=== PATIENT | female | born 1980 | race American Indian/Alaskan Native ===

== ENCOUNTER 2018-02-01 16:24 | Inpatient (IN) | payer MEDICAID, OTHER ==
[2018-02-01 16:31] VITALS: O2SAT 100
--- NOTE | 2018-02-01 16:31 | ED PDOC ---
Psych Transfer Clearance - Clearance Statement Clearance Statement: Reviewed vital signs, lab results and transfer papers. Patient clinically stable for psychiatric admission.
[2018-02-01] MEDS ORDERED: Magnesium Hydroxide Susp 30 ml UD PO PRN (18:52)
[2018-02-01] MEDS ORDERED: DiphenhydrAMINE 50 mg/ml Inj IM PRN (18:52)
--- NOTE | 2018-02-01 19:00 | PCM.BM ---
<Rashmi Goldsmith - Last Filed: 02/01/18 18:59> Treatment Plan Problems - Problems identified on initial assessmt medication nonadherence Date Initiated: 02/01/18 Time Initiated: 18:59 Assessment reference: NA Status: Active Hopelessness/Helplessness Date Initiated: 02/01/18 Time Initiated: 18:59 Assessment reference: NA Status: Active Altered Sleep Patterns Date Initiated: 02/01/18 Time Initiated: 18:59 Assessment reference: NA Status: Active Treatment assets and liabiliti Patient Assests: adapts well, cooperative, motivated, ADL independent, good support system, negotiates basic needs Patient Liabilities: financial problems, poor support system, substance abuse, legal issue - Milieu Protocol Maintain good personal hygiene: daily Encourage regular showers, daily Remind patient to perform daily oral care, daily Assist patient to perform ADL's Maintain personal safety: daily Educate patient to report safety concerns to staff, daily Monitor environment for contraband/sharps, every shift Educate patient to report safety concerns to staff, every shift Monitor environment for contraband/sharps Medication safety: Monitor for expected outcome, potential side effects: daily, every shift, Assess barriers to learning: daily, every shift, Assess readiness for medication education: daily, every shift <Lan Madden - Last Filed: 02/04/18 13:56> Treatment Plan Problems - Problems identified on initial assessmt medication nonadherence Date Initiated: 02/01/18 Time Initiated: 18:59 Assessment reference: NA Status: Active Hopelessness/Helplessness Date Initiated: 02/01/18 Time Initiated: 18:59 Assessment reference: NA Status: Active Altered Sleep Patterns Date Initiated: 02/01/18 Time Initiated: 18:59 Assessment reference: NA Status: Active Denial Date Initiated: 02/04/18 Time Initiated: 11:14 Assessment reference: NA Status: Active Family Contact Family involvement: Famliy/SO not involved Family contact: Patient declines to allow family contact at present Family contact name: Pt denied. - Goals for Treatment Patient goals for treatment: Pt refused to attend treatment team due to withdrawl symptoms. Goals unable to be obtained. Discharge/Continuing Care - Education Needs Education Needs: Patient Medication, Patient Diagnosis/Disease Process, Patient Coping Skills, Patient Placement options, Patient Community resources, Patient Aftercare Safety Plan - Discharge Discharge Criteria: Tolerates medication w/o severe side effects, Free of Suicidal thoughts, Normal sleep pattern, No longer exhibiting s/s of withdrawal , Reduction of target symptoms Discharge to:: Long-Term - Treatment Team Participation Patient/Family/SO Statement: 02/04/18 13:57 Pt refused to attend treatment team due to withdrawal symptoms. Discussed with Family/SO: No Was Patient/Family/SO present at Treatment Team Meeting: No <Nicol Garcia - Last Filed: 02/04/18 14:34> - Diagnosis (1) Opioid use disorder, severe, dependence Status: Acute Interventions: motivational therapy 02/04/18 14:34
--- NOTE | 2018-02-02 13:16 | PCM.PSYCH ---
Initial Psychiatric Evaluation - Initial Psychiatric Evaluation Type of Admission: Voluntary Legal Status: Capacity Chief Complaint (in patient's own words): I am very depressed Patient's Reaction to Hospitalization: pt requested help History of Present Illness and Precipitating Events: pt is 37 ys old female with previous psychiatric diagnosis of poly substance use and depression, pt presented to ER in [facility] reporting suicidal ideation with plan to overdose, relates her depression to loosing custody of her six children to her mother, being unempolyed, homeless and having financial difficulties , pt recently relapsed on heroin using about 15 bags daily , also relapsed on cocaine and xanax pt on the unit presenting with depressed mood and affect, feeling hopeless and helpless, poor motivation and energy and poor sleep, continues to have passive suicidal ideation without active plan on the unit denied homicidal ideation, denied perceptual disturbances Current Medications: Active Medications Generic Name Dose Route Start Last Admin Trade Name Freq PRN Reason Stop Dose Admin Acetaminophen 650 mg 02/01/18 18:52 Tylenol 325mg Tab PO Q4 PRN Pain, moderate (4-7) Al Hydrox/Mg Hydrox/Simethicone 30 ml 02/01/18 18:52 Maalox Plus 30 Ml PO Q4 PRN Dyspepsia Clonidine HCl 0.1 mg 02/01/18 20:30 02/02/18 05:53 Catapres PO 02/04/18 20:31 Not Given Q8 VALENTIN Cyclobenzaprine HCl 5 mg 02/02/18 11:14 Flexeril PO TID PRN Muscle spasm Diphenhydramine HCl 50 mg 02/01/18 18:52 Benadryl IM Q6 PRN Extrapyramidal S/S Unable PO Diphenhydramine HCl 50 mg 02/01/18 18:52 Benadryl PO Q6 PRN Extrapyramidal Symptoms Gabapentin 200 mg 02/02/18 13:00 Neurontin PO TID VALENTIN Haloperidol 5 mg 02/01/18 18:52 Haldol PO Q4 PRN Agitation Haloperidol Lactate 5 mg 02/01/18 18:52 Haldol IM Q4 PRN Agitation, Unable to Take PO Ibuprofen 800 mg 02/01/18 19:14 Motrin Tab PO Q6 PRN Pain, severe (8-10) Loperamide HCl 2 mg 02/01/18 19:13 Imodium PO Q6 PRN diarreha Lorazepam 1 mg 02/01/18 20:21 Ativan PO Q6 PRN Agitation Lorazepam 1 mg 02/01/18 20:22 Ativan IM Q6 PRN Agitation Magnesium Hydroxide 30 ml 02/01/18 18:52 Milk Of Magnesia PO HS PRN Constipation Multivitamins/Minerals 1 tab 02/02/18 09:00 Therapeutic-M Tab PO DAILY VALENTIN Ondansetron HCl 4 mg 02/01/18 19:53 02/01/18 20:13 Zofran Tab PO 4 mg Q6 PRN Administration Nausea/Vomiting Past Psychiatric History - Past Psychiatric History Explanation of prior treatment: multiple inpatient hospitalizations hx of non compliance with treatment History of ETOH/Drug Use: cocaine, heroin, xanax and alcohol Pertinent Medical Hx (Current Medical&Sleep Prob, Allergies): Allergies Allergy/AdvReac Type Severity Reaction Status Date / Time SHRIMP Allergy RASH Uncoded 02/01/18 16:26 Mental Status Examination - Personal Presentation Personal Presentation: Looks older than stated age - Affect Affect: Constricted, Depressed - Motor Activity Motor Activity: Psychomotor Retardation - Reliability in Providing Information Reliability in Providing Information: Poor, due to altered mood - Speech Speech: Relevant - Mood Mood: Depressed, Anxious - Formal Thought Process Formal Thought Process: Circumstantial - Hallucinations/Delusions Additional comments: denied perceptual disturbances, non elicited - Obsessions/Compulsions Obsessions: No Compulsions: No - Cognitive Functions Orientation: Person, Place, Situation Sensorium: Alert Judgement: Imparied, as evidence by: Poor judgement, Imparied, as evidence by: Lack of insight into illness - Risk Risk: Suicidal, Withdrawal, Diminished functioning - Strength & Assets Inventory Strength & Assets Inventory: Employment history - Limitations Additional comments: poor compliance DSM 5 DX - DSM 5 DSM 5 Diagnosis: 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
[2018-02-02] MEDS: Multivitamin With Minerals Tab PO SCH (13:33)
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
[2018-02-03] MEDS: Multivitamin With Minerals Tab PO SCH (10:09)
--- NOTE | 2018-02-03 14:33 | PCM.PYCHPN ---
Psychiatric Progress Note - Psychiatric Progress Note Patient seen today, length of contact: pt evaluated discussed with team chart reviewed Patient Chief Complaint: I am having hard time with the withdrawals Problems Identified/Issues Discussed: pt seen in bed , presenting with depressed mood , dysphoric affect, low energy, reported poor motivation, passive suicidal ideation without plan , relates that to financial stress and withdrawal symptoms, motivational therapy provided discussed with pt effect of substance use on current mental status, ,will start wellbutrin for depresed , pt continues to report passive suicidal ideation without active plan on the unit, denied command hallucinations Medical Problems: multiple inpatient hospitalizations hx of non compliance with treatment DSM 5 Symptoms Update: substance induced mood disorder with depressive features Medication Change: Yes Medical Record Reviewed: Yes Mental Status Examination - Cognitive Function Orientation: Person, Place, Situation Attention: WNL Concentration: Poor Association: WNL Fund of Knowledge: Poor Decription of patient's judgement and insights: poor insight and judgment - Mood Mood: Depressed, Anxious - Affect Affect: Constricted, Depressed - Speech Speech: Soft - Formal Thought Process Formal Thought Process: Circumstantial Psychotic Thoughts and Behaviors: pt denied any current perceptual disturbances - Suicidal Ideation Suicidal Ideation: No - Homicidal Ideation Homicidal Ideation: No Goal/Treatment Plan - Goal/Treatment Plan Need for Continued Stay: Severe depression anxiety, Discharge may exacerbated symptoms Progress Toward Problem(s) and Goals/Treatment Plan: continue clonidine protocol and monitor for symptoms and signs of opiate withdrawal wellbutrin 75 mg daily neurontin 200mg tid for anxiety trazodone 100mg qhs for insomnia motivational group and supportive therapy Estimated Date of D/C: 02/08/18
[2018-02-03 19:06] VITALS: RESP 18
[2018-02-04] MEDS ORDERED: Trimethobenzamide 200 mg/2 mL Inj IM ONE (10:46)
--- NOTE | 2018-02-04 11:14 | PCM.BM ---
Treatment Plan Problems - Problems identified on initial assessmt medication nonadherence Date Initiated: 02/01/18 Time Initiated: 18:59 Assessment reference: NA Status: Active Hopelessness/Helplessness Date Initiated: 02/01/18 Time Initiated: 18:59 Assessment reference: NA Status: Active Altered Sleep Patterns Date Initiated: 02/01/18 Time Initiated: 18:59 Assessment reference: NA Status: Active Denial Date Initiated: 02/04/18 Time Initiated: 11:14 Assessment reference: NA Status: Active Treatment assets and liabiliti Patient Assests: adapts well, cooperative, motivated, ADL independent, good support system, negotiates basic needs Patient Liabilities: financial problems, poor support system, substance abuse, legal issue - Milieu Protocol Maintain good personal hygiene: daily Encourage regular showers, daily Remind patient to perform daily oral care, daily Assist patient to perform ADL's Maintain personal safety: daily Educate patient to report safety concerns to staff, daily Monitor environment for contraband/sharps, every shift Educate patient to report safety concerns to staff, every shift Monitor environment for contraband/sharps Medication safety: Monitor for expected outcome, potential side effects: daily, every shift, Assess barriers to learning: daily, every shift, Assess readiness for medication education: daily, every shift Milieu Narrative: continue clonidine protocol and monitor for symptoms and signs of opiate withdrawal wellbutrin 75 mg daily neurontin 200mg tid for anxiety trazodone 100mg qhs for insomnia motivational group and supportive therapy Discharge/Continuing Care - Treatment Team Participation Patient/Family/SO Statement: continue clonidine protocol and monitor for symptoms and signs of opiate withdrawal wellbutrin 75 mg daily neurontin 200mg tid for anxiety trazodone 100mg qhs for insomnia motivational group and supportive therapy
[2018-02-04] MEDS: Multivitamin With Minerals Tab PO SCH (12:43)
[2018-02-04] MEDS: Alum-Mag Hydrox-Simethicone Susp (30 mL) PO PRN (12:45)
--- NOTE | 2018-02-04 14:48 | PCM.PYCHPN ---
Psychiatric Progress Note - Psychiatric Progress Note Patient seen today, length of contact: pt evaluated discussed with team chart reviewed Patient Chief Complaint: I am feeling down Problems Identified/Issues Discussed: pt evaluated seen in bed, presenting with dysphoric affect and depressed mood , pt continues to be going through opiate withdrawal, discussed, continuing with clonidine protocol , motivational therapy provided in reference to opiate withdrawal, also discussed referral to rehab on discharge no reported side effects of wellbutrin, pt denied any current thoughts of self harm, denied perceptual disturbances Medical Problems: multiple inpatient hospitalizations hx of non compliance with treatment DSM 5 Symptoms Update: substance induced mood disorder cocaine abuse opiate abuse depression Medication Change: No Medical Record Reviewed: Yes Mental Status Examination - Cognitive Function Orientation: Person, Place, Situation Attention: WNL Concentration: Poor Association: WNL Fund of Knowledge: Poor Decription of patient's judgement and insights: poor insight and judgment - Mood Mood: Depressed, Anxious - Affect Affect: Constricted, Depressed - Speech Speech: Soft - Formal Thought Process Formal Thought Process: Circumstantial Psychotic Thoughts and Behaviors: pt denied any current perceptual disturbances - Suicidal Ideation Suicidal Ideation: No - Homicidal Ideation Homicidal Ideation: No Goal/Treatment Plan - Goal/Treatment Plan Need for Continued Stay: Severe depression anxiety, Discharge may exacerbated symptoms Progress Toward Problem(s) and Goals/Treatment Plan: continue clonidine protocol and monitor for symptoms and signs of opiate withdrawal wellbutrin 75 mg daily neurontin 200mg tid for anxiety trazodone 100mg qhs for insomnia motivational group and supportive therapy Estimated Date of D/C: 02/08/18
[2018-02-05] MEDS: Multivitamin With Minerals Tab PO SCH (09:37)
[2018-02-05] MEDS: Alum-Mag Hydrox-Simethicone Susp (30 mL) PO PRN (11:42)
--- NOTE | 2018-02-05 15:34 | PCM.PYCHPN ---
Psychiatric Progress Note - Psychiatric Progress Note Patient seen today, length of contact: pt evaluated discussed with team chart reviewed Patient Chief Complaint: alteration in coping, alteration mood Problems Identified/Issues Discussed: alteration in mood alteration in cognition Medical Problems: per chart Diagnostic Results: per psychiatry per medicine per nursing per social work per recreational therapy DSM 5 Symptoms Update: somewhat lessening of mood Medication Change: No Medical Record Reviewed: Yes Consults ordered or reviewed: pt seen by hospitalist Mental Status Examination - Cognitive Function Orientation: Person, Place, Situation Attention: WNL Concentration: Poor Association: WNL Fund of Knowledge: Poor Decription of patient's judgement and insights: impaired - Mood Mood: Depressed, Anxious - Affect Affect: Constricted, Depressed - Speech Speech: Soft - Formal Thought Process Formal Thought Process: Circumstantial - Suicidal Ideation Suicidal Ideation: No - Homicidal Ideation Homicidal Ideation: No Goal/Treatment Plan - Goal/Treatment Plan Need for Continued Stay: Severe depression anxiety, Discharge may exacerbated symptoms Progress Toward Problem(s) and Goals/Treatment Plan: inpt milieu adjust meds per status on going asessment discharge planning in progress- psycheducation-halluncinations per possible renumeration Estimated Date of D/C: 02/08/18 - Smoking Cessation Smoking Cessation Initiated: No Reason for not providing: pt defers
[2018-02-06] MEDS: buPROPion SR 150 MG TABLET PO SCH (09:15)
[2018-02-06] MEDS: Multivitamin With Minerals Tab PO SCH (09:16)
[2018-02-06] MEDS: Alum-Mag Hydrox-Simethicone Susp (30 mL) PO PRN (09:16)
--- NOTE | 2018-02-06 15:32 | PCM.PYCHPN ---
Psychiatric Progress Note - Psychiatric Progress Note Patient seen today, length of contact: pt evaluated discussed with team chart reviewed Patient Chief Complaint: reports doing much better, less depressed. staff report pt rx adherent. seen about unit Problems Identified/Issues Discussed: alteration in mood alteration in cognition Medical Problems: per chart Diagnostic Results: per psychiatry per medicine per nursing per social work per recreational therapy DSM 5 Symptoms Update: improving mood and insomnia Medication Change: No Medical Record Reviewed: Yes Consults ordered or reviewed: pt seen by hospitalist Mental Status Examination - Cognitive Function Orientation: Person, Place, Situation Attention: WNL Concentration: Poor Association: WNL Fund of Knowledge: Poor Decription of patient's judgement and insights: impaired - Mood Mood: Depressed, Anxious - Affect Affect: Broad, Depressed - Speech Speech: Soft - Formal Thought Process Formal Thought Process: No Impairment - Suicidal Ideation Suicidal Ideation: No - Homicidal Ideation Homicidal Ideation: No Goal/Treatment Plan - Goal/Treatment Plan Need for Continued Stay: Severe depression anxiety, Discharge may exacerbated symptoms Progress Toward Problem(s) and Goals/Treatment Plan: inpt milieu adjust meds per status on going asessment discharge planning in progress- psycheducation-halluncinations per possible renumeration Estimated Date of D/C: 02/08/18 - Smoking Cessation Smoking Cessation Initiated: No Reason for not providing: pt defers
[2018-02-07 09:15] VITALS: BP 138/79; PULSE 61; TEMP 97.7
[2018-02-07] MEDS: Multivitamin With Minerals Tab PO SCH (09:42)
[2018-02-07] MEDS: buPROPion SR 150 MG TABLET PO SCH (09:44)
== END 2018-02-07 14:46 | disposition home or self-care (01) | DRG 745 ==
LOC: H.ER 16:24 → H.PSYCH 16:30
PROVIDERS: ADMIT Psychiatry & Neurology Psychiatry; ATTEND Psychiatry & Neurology Psychiatry
PROC: GZ56ZZZ Individual Psychotherapy, Supportive (ICD-10-PCS; 2018-02-01)
PROC: GZHZZZZ Group Psychotherapy (ICD-10-PCS; principal; 2018-02-03)
DX: F14.14 Cocaine abuse with cocaine-induced mood disorder (principal); F32.9 Major depressive disorder, single episode, unspecified; F13.10 Sedative, hypnotic or anxiolytic abuse, uncomplicated; F11.23 Opioid dependence with withdrawal; F41.9 Anxiety disorder, unspecified; G47.00 Insomnia, unspecified; I10 Essential (primary) hypertension; R45.851 Suicidal ideations; Z59.0 Homelessness; F17.210 Nicotine dependence, cigarettes, uncomplicated; Z90.49 Acquired absence of other specified parts of digestive tract; Z91.19 Patient's noncompliance with other medical treatment and regimen